=== PATIENT | male | born 1960 | race Caucasian/White ===

== ENCOUNTER 2021-04-29 23:19 | Inpatient (IN) | payer MEDICARE ==
[~2021-04-29] VITALS: Ht 175.3 cm; Wt 75.8 kg
[2021-04-30 03:48] LABS: Urine Bacteria NONE SEEN /hpf (None Seen); Urine Blood 3+ /uL (Negative); Urine Mucus FEW (None Seen); Urine WBC 292 /hpf (0 - 3)
[2021-04-30 04:10] LABS: Urine Specific Gravity 1.026 (1.001-1.035)
[2021-04-30 05:44] LABS: Basophils # (auto) 0.1 10 ^3/uL (0-0.2); Eosinophils # (auto) 0.3 10 ^3/uL (0-0.8); Eosinophils % (auto) 3.6 % (0.0-7.0); Hematocrit 47.1 % (41.0-53.0); Hemoglobin 15.4 g/dL (13.5-17.5); Lymphocytes # (auto) 1.9 10 ^3/uL (0.4-5.4); Mean Corpuscular Hemoglobin 31.5 pg (28.0-32.0); Mean Corpuscular Hgb Conc. 32.8 g/dL (32.0-36.0); Mean Corpuscular Volume 96.1 fL (80.0-100.0); Monocytes # (auto) 0.8 10 ^3/uL (0-1.3); Monocytes % (auto) 10.3 % (0.0-12.0); Neutrophils # (auto) 5.1 10 ^3/uL (1.6-8.6); Neutrophils % (auto) 62.1 % (37.0-80.0); Nucleated Red Blood Cells % 0.1 %; Red Cell Distribution Width 14.1 % (11.8-14.3); White Blood Cell 8.2 10^3/uL (4.4-10.8)
[2021-04-30 06:04] LABS: INR 1.03 (0.9-1.15)
[2021-04-30 06:15] LABS: Albumin 3.7 g/dL (3.4-5.0); Calcium 8.8 mg/dL (8.5-10.1); Magnesium 2.3 mg/dL (1.6-2.6); Potassium 3.7 mmol/L (3.5-5.1)
[2021-04-30 06:20] LABS: BUN/Creatinine Ratio 29.3; Bilirubin, Total 0.8 mg/dL (0.2-1.0); Total Protein 6.7 g/dL (6.4-8.2)
[2021-04-30] MEDS ORDERED: ONDANSETRON HCL 4 MG/2 ML VIAL IV PRN (07:00)
[2021-04-30] MEDS ORDERED: ACETAMINOPHEN 325 MG TAB PO PRN (07:00)
[2021-04-30] MEDS: HYDROcodone-ACET 5/325MG TAB PO PRN ×3 (08:23→23:46)
[2021-04-30] MEDS: cefTRIAXone 1GM/50ML D5W 50 ML IV SCH (09:46)
[2021-04-30] MEDS: PHENAZOPYRIDINE HCL 100 MG TAB PO SCH ×2 (10:21→23:46)
[2021-04-30] MEDS: PANTOPRAZOLE 40 MG TAB PO SCH (10:21)
[2021-04-30 17:00] VITALS: BP 153/78
[2021-04-30] MEDS: TAMSULOSIN HYDROCHLORIDE 0.4 MG CAP PO SCH (17:40)
[2021-04-30 22:00] VITALS: BP 133/75
[2021-05-01] MEDS: SODIUM CHLORIDE 0.9% 1,000 ML IV SCH ×3 (04:20→17:45)
[2021-05-01] MEDS: HYDROcodone-ACET 5/325MG TAB PO PRN ×4 (04:43→22:53)
[2021-05-01 05:58] LABS: Basophils # (auto) 0.1 10 ^3/uL (0-0.2); Basophils % (auto) 0.5 % (0.0-2.0); Eosinophils # (auto) 0.2 10 ^3/uL (0-0.8); Hematocrit 40.7 % (41.0-53.0); Lymphocytes # (auto) 1.8 10 ^3/uL (0.4-5.4); Lymphocytes % (auto) 17.3 % (10.0-50.0); Mean Corpuscular Hemoglobin 32.9 pg (28.0-32.0); Mean Corpuscular Hgb Conc. 34.3 g/dL (32.0-36.0); Mean Corpuscular Volume 95.8 fL (80.0-100.0); Monocytes # (auto) 1.1 10 ^3/uL (0-1.3); Neutrophils # (auto) 7.4 10 ^3/uL (1.6-8.6); Neutrophils % (auto) 70.2 % (37.0-80.0); Red Blood Cells 4.25 10^6/uL (4.5-5.90); White Blood Cell 10.5 10^3/uL (4.4-10.8)
[2021-05-01 06:33] LABS: BUN/Creatinine Ratio 23.3; Calcium 7.9 mg/dL (8.5-10.1); Potassium 3.6 mmol/L (3.5-5.1)
[2021-05-01 08:00] VITALS: BP 145/56
[2021-05-01] MEDS: cefTRIAXone 1GM/50ML D5W 50 ML IV SCH (11:15)
[2021-05-01] MEDS: PANTOPRAZOLE 40 MG TAB PO SCH (11:16)
[2021-05-01] MEDS: PHENAZOPYRIDINE HCL 100 MG TAB PO SCH ×2 (11:16→22:53)
[2021-05-01] MEDS: TAMSULOSIN HYDROCHLORIDE 0.4 MG CAP PO SCH (18:40)
[2021-05-01 22:00] VITALS: BP 141/78
[2021-05-02] MEDS: SODIUM CHLORIDE 0.9% 1,000 ML IV SCH ×4 (01:33→23:15)
[2021-05-02 05:00] VITALS: BP 144/86
[2021-05-02] MEDS: HYDROcodone-ACET 5/325MG TAB PO PRN ×2 (06:23→20:17)
[2021-05-02 09:00] VITALS: BP 152/102
[2021-05-02] MEDS: cefTRIAXone 1GM/50ML D5W 50 ML IV SCH (09:30)
[2021-05-02] MEDS: PANTOPRAZOLE 40 MG TAB PO SCH (09:31)
[2021-05-02 13:00] VITALS: BP 150/89
[2021-05-02 16:52] VITALS: BP 148/95
[2021-05-02] MEDS: TAMSULOSIN HYDROCHLORIDE 0.4 MG CAP PO SCH (18:50)
[2021-05-02 22:00] VITALS: BP 137/89
[2021-05-02] MEDS: TEMAZEPAM 15 MG CAP PO PRN (23:24)
[2021-05-03] MEDS: SODIUM CHLORIDE 0.9% 1,000 ML IV SCH ×4 (03:02→23:11)
[2021-05-03 05:16] VITALS: BP 150/91
[2021-05-03 09:00] VITALS: BP 139/77
[2021-05-03] MEDS: cefTRIAXone 1GM/50ML D5W 50 ML IV SCH (09:04)
[2021-05-03] MEDS: PANTOPRAZOLE 40 MG TAB PO SCH (09:04)
[2021-05-03] MEDS: HYDROcodone-ACET 5/325MG TAB PO PRN (13:06)
[2021-05-03] MEDS: TAMSULOSIN HYDROCHLORIDE 0.4 MG CAP PO SCH (18:49)
[2021-05-03] MEDS ORDERED: KETOROLAC TROMETH 30 MG/ML 1ML VIAL IV ONE (21:00)
[2021-05-03] MEDS: TEMAZEPAM 15 MG CAP PO PRN (21:59)
[2021-05-03 22:00] VITALS: BP 147/84
[2021-05-04 05:00] VITALS: BP 146/81
[2021-05-04 05:37] LABS: Basophils # (auto) 0.1 10 ^3/uL (0-0.2); Basophils % (auto) 0.9 % (0.0-2.0); Eosinophils # (auto) 0.6 10 ^3/uL (0-0.8); Hematocrit 38.2 % (41.0-53.0); Lymphocytes # (auto) 1.5 10 ^3/uL (0.4-5.4); Lymphocytes % (auto) 18.6 % (10.0-50.0); Mean Corpuscular Hemoglobin 32.5 pg (28.0-32.0); Mean Corpuscular Volume 95.7 fL (80.0-100.0); Monocytes # (auto) 0.8 10 ^3/uL (0-1.3); Monocytes % (auto) 10.3 % (0.0-12.0); Neutrophils % (auto) 63.2 % (37.0-80.0); Nucleated Red Blood Cells % 0.1 %; Red Blood Cells 3.99 10^6/uL (4.5-5.90); Red Cell Distribution Width 13.8 % (11.8-14.3); White Blood Cell 7.9 10^3/uL (4.4-10.8)
[2021-05-04 05:39] LABS: INR 1.01 (0.9-1.15); Partial Thromboplastin Time 25.6 sec (23.6-33.0)
[2021-05-04] MEDS: SODIUM CHLORIDE 0.9% 1,000 ML IV SCH ×3 (05:40→19:00)
[2021-05-04 05:50] LABS: Potassium 4.2 mmol/L (3.5-5.1)
[2021-05-04 05:56] LABS: Albumin 2.4 g/dL (3.4-5.0); BUN/Creatinine Ratio 15.2
[2021-05-04 06:28] LABS: Bilirubin, Total 0.6 mg/dL (0.2-1.0); Total Protein 5.2 g/dL (6.4-8.2)
[2021-05-04 08:48] VITALS: BP 139/83
[2021-05-04] MEDS: PANTOPRAZOLE 40 MG TAB PO SCH (08:48)
[2021-05-04] MEDS: cefTRIAXone 1GM/50ML D5W 50 ML IV SCH (08:48)
[2021-05-04 12:49] VITALS: BP 140/80
[2021-05-04 17:00] VITALS: BP 165/84
[2021-05-04 17:07] VITALS: BP 165/84
[2021-05-04] MEDS: TAMSULOSIN HYDROCHLORIDE 0.4 MG CAP PO SCH (18:24)
[2021-05-04] MEDS: HYDROcodone-ACET 5/325MG TAB PO PRN (20:31)
[2021-05-04] MEDS: TEMAZEPAM 15 MG CAP PO PRN (21:38)
[2021-05-04 22:00] VITALS: BP 151/78
[2021-05-05] MEDS: SODIUM CHLORIDE 0.9% 1,000 ML IV SCH ×5 (00:23→21:40)
[2021-05-05 05:00] VITALS: BP 134/79
[2021-05-05 09:00] VITALS: BP 157/90
[2021-05-05] MEDS: PANTOPRAZOLE 40 MG TAB PO SCH (09:21)
[2021-05-05] MEDS: cefTRIAXone 1GM/50ML D5W 50 ML IV SCH (09:22)
[2021-05-05 13:00] VITALS: BP 115/93
[2021-05-05] MEDS ORDERED: GLYCOPYRROLATE 0.2 MG/ML 1ML VIAL ONE (15:34)
[2021-05-05] MEDS ORDERED: ETOMIDATE (2MG/ML) 20ML VIAL IV ONE (15:34)
[2021-05-05] MEDS ORDERED: fentaNYL CITRATE 100 MCG/2 ML VL ONE (15:34)
[2021-05-05] MEDS ORDERED: MEPERIDINE HCL (50 MG/ML) 1 ML VIAL ONE (15:34)
[2021-05-05] MEDS ORDERED: LIDOCAINE 2% (LOCAL ANESTH.) PF 5ml SDV ONE (15:34)
[2021-05-05] MEDS ORDERED: DexAMETHasone SOD PHOS 10MG/1ML VIAL INJ ONE (15:34)
[2021-05-05] MEDS ORDERED: ePHEDrine SULFATE 50 MG/ML AMP ONE (15:34)
[2021-05-05] MEDS ORDERED: MIDAZOLAM HCL 2MG/2ML 2ml VIAL (1mg/ml) ONE (15:34)
[2021-05-05] MEDS ORDERED: ONDANSETRON HCL 4 MG/2 ML VIAL ONE (15:34)
[2021-05-05] MEDS ORDERED: ROCURONIUM 10MG/ML 10ML VIAL IV ONE (15:34)
[2021-05-05 16:34] VITALS: BP 127/72
[2021-05-05] MEDS: TAMSULOSIN HYDROCHLORIDE 0.4 MG CAP PO SCH (18:43)
[2021-05-05] MEDS: HYDROcodone-ACET 5/325MG TAB PO PRN (18:44)
[2021-05-05] MEDS: TEMAZEPAM 15 MG CAP PO PRN (21:10)
[2021-05-05 22:00] VITALS: BP 117/76
[2021-05-06] MEDS: SODIUM CHLORIDE 0.9% 1,000 ML IV SCH ×3 (04:54→19:29)
[2021-05-06] MEDS: HYDROcodone-ACET 5/325MG TAB PO PRN (06:02)
[2021-05-06] MEDS: cefTRIAXone 1GM/50ML D5W 50 ML IV SCH (08:58)
[2021-05-06] MEDS: PANTOPRAZOLE 40 MG TAB PO SCH (08:59)
[2021-05-06 09:00] VITALS: BP 130/52
[2021-05-06 13:00] VITALS: BP 135/74
[2021-05-06 17:00] VITALS: BP 139/91
[2021-05-06] MEDS: TAMSULOSIN HYDROCHLORIDE 0.4 MG CAP PO SCH (17:07)
[2021-05-06 22:00] VITALS: BP 141/71
[2021-05-06] MEDS: TEMAZEPAM 15 MG CAP PO PRN (22:32)
[2021-05-07] MEDS: SODIUM CHLORIDE 0.9% 1,000 ML IV SCH ×4 (02:14→20:24)
[2021-05-07 05:00] VITALS: BP 147/75
[2021-05-07] MEDS ORDERED: CIPROFLOXACIN 400MG/200ML 200 ML IV ONE (07:09)
[2021-05-07] MEDS ORDERED: fentaNYL CITRATE 100 MCG/2 ML VL ONE (07:48)
[2021-05-07] MEDS ORDERED: MEPERIDINE HCL (50 MG/ML) 1 ML VIAL ONE (07:49)
[2021-05-07] MEDS ORDERED: MIDAZOLAM HCL 2MG/2ML 2ml VIAL (1mg/ml) ONE (07:49)
[2021-05-07] MEDS ORDERED: ETOMIDATE (2MG/ML) 20ML VIAL IV ONE (08:18)
[2021-05-07] MEDS ORDERED: DexAMETHasone SOD PHOS 10MG/1ML VIAL INJ ONE (08:18)
[2021-05-07 09:00] VITALS: BP 149/88
[2021-05-07] MEDS: cefTRIAXone 1GM/50ML D5W 50 ML IV SCH (10:18)
[2021-05-07] MEDS: PANTOPRAZOLE 40 MG TAB PO SCH (10:18)
[2021-05-07] MEDS: HYDROcodone-ACET 5/325MG TAB PO PRN ×2 (10:28→19:17)
[2021-05-07 13:00] VITALS: BP 147/87
[2021-05-07 17:00] VITALS: BP 150/93
[2021-05-07] MEDS: TAMSULOSIN HYDROCHLORIDE 0.4 MG CAP PO SCH (18:16)
[2021-05-07] MEDS: TEMAZEPAM 15 MG CAP PO PRN (21:45)
[2021-05-07 22:00] VITALS: BP 169/84
[2021-05-08] MEDS: SODIUM CHLORIDE 0.9% 1,000 ML IV SCH ×2 (04:37→09:40)
[2021-05-08 05:00] VITALS: BP 152/88
[2021-05-08 09:00] VITALS: BP 149/87
[2021-05-08] MEDS: PANTOPRAZOLE 40 MG TAB PO SCH (09:30)
[2021-05-08] MEDS: HYDROcodone-ACET 5/325MG TAB PO PRN (09:30)
[2021-05-08] MEDS: cefTRIAXone 1GM/50ML D5W 50 ML IV SCH (09:30)
[2021-05-08 13:00] VITALS: BP 137/75
[2021-05-08 14:56] VITALS: BP 137/75
== END 2021-05-08 16:30 | disposition home or self-care (01) | DRG 713 ==
LOC: ER 23:19 → OVERFLOW 04-30 06:49 → WEST WING 04-30 12:55
PROVIDERS: ADMIT Nurse Practitioner; ATTEND Family Medicine
PROC: 0VB08ZZ Excision of Prostate, Via Natural or Artificial Opening Endoscopic (ICD-10-PCS; principal; 2021-05-07 07:40)
DX: N40.1 Benign prostatic hyperplasia with lower urinary tract symptoms (principal); N39.0 Urinary tract infection, site not specified; N20.0 Calculus of kidney; I10 Essential (primary) hypertension; J44.9 Chronic obstructive pulmonary disease, unspecified; F17.210 Nicotine dependence, cigarettes, uncomplicated; N39.498 Other specified urinary incontinence; R33.8 Other retention of urine; I25.10 Atherosclerotic heart disease of native coronary artery without angina pectoris; Z20.822 Contact with and (suspected) exposure to COVID-19; G40.909 Epilepsy, unspecified, not intractable, without status epilepticus; Z83.3 Family history of diabetes mellitus; Z86.73 Personal history of transient ischemic attack (TIA), and cerebral infarction without residual deficits; Z87.442 Personal history of urinary calculi; Z90.79 Acquired absence of other genital organ(s)
CPT/HCPCS: 36415; 71045; 74176; 80048; 80053; 81001; 83605; 83735; 85025; 85610; 85730; 86850; 86900; 86901; 87086; 87426; 93306; 96365; G0378; J0696; J1100; J1885; J2001; J2250; J2405

== ENCOUNTER 2021-09-14 14:07 | Emergency (ER) | payer MEDICARE ==
[~2021-09-14] VITALS: Ht 172.7 cm; Wt 72.6 kg
[2021-09-14] MEDS ORDERED: KETOROLAC TROMETH 60MG/2ML VIAL IM ONE (16:15)
[2021-09-14] MEDS ORDERED: ALBU0.084 IN (16:49)
[2021-09-14] MEDS ORDERED: IBUP800T27 PO (16:49)
[2021-09-14 17:21] VITALS: BP 150/99
== END 2021-09-14 17:40 | disposition home or self-care (01) ==
LOC: ER 14:09
DX: M54.50 Low back pain, unspecified (principal); I10 Essential (primary) hypertension; I25.10 Atherosclerotic heart disease of native coronary artery without angina pectoris; F17.210 Nicotine dependence, cigarettes, uncomplicated; Z79.1 Long term (current) use of non-steroidal anti-inflammatories (NSAID); Z79.899 Other long term (current) drug therapy; W10.9XXA Fall (on) (from) unspecified stairs and steps, initial encounter; Y93.89 Activity, other specified; Y92.89 Other specified places as the place of occurrence of the external cause; Y99.8 Other external cause status
CPT/HCPCS: 70450; 72100; 96372; 99284; J1885

== ENCOUNTER 2021-11-21 18:23 | Inpatient (IN) | payer MEDICARE ==
[~2021-11-21] VITALS: Ht 175.3 cm; Wt 60.3 kg
[~2021-11-21 18:23] MED LIST: ALBU0.084 IN; IBUP800T27 PO
[2021-11-21] MEDS ORDERED: methylPREDNISolone SOD SUCC 125 MG/2 ML VL IV ONE (19:30)
[2021-11-21] MEDS ORDERED: ALBUTEROL SULF 2.5 MG/0.5ML(0.5%) NEB SOLN NEB ONE (19:30)
[2021-11-21] MEDS ORDERED: IPRATROPIUM BROM 0.5 MG/2.5ML INH SOL NEB ONE (19:30)
[2021-11-21 19:34] LABS: Basophils # (auto) 0.1 10 ^3/uL (0-0.2); Basophils % (auto) 0.4 % (0.0-2.0); Eosinophils # (auto) 0.1 10 ^3/uL (0-0.8); Eosinophils % (auto) 0.4 % (0.0-7.0); Hematocrit 43.1 % (41.0-53.0); Hemoglobin 14.5 g/dL (13.5-17.5); Lymphocytes # (auto) 1.1 10 ^3/uL (0.4-5.4); Mean Corpuscular Hemoglobin 31.6 pg (28.0-32.0); Mean Corpuscular Hgb Conc. 33.7 g/dL (32.0-36.0); Mean Corpuscular Volume 93.6 fL (80.0-100.0); Monocytes % (auto) 7.1 % (0.0-12.0); Neutrophils # (auto) 11.8 10 ^3/uL (1.6-8.6); Neutrophils % (auto) 84.1 % (37.0-80.0); Nucleated Red Blood Cells % 0.1 %; Red Cell Distribution Width 13.4 % (11.8-14.3)
[2021-11-21 19:49] LABS: BUN/Creatinine Ratio 36.5; Calcium 8.7 mg/dL (8.5-10.1); Potassium 4.8 mmol/L (3.5-5.1)
[2021-11-21 19:53] LABS: Bilirubin, Total 0.9 mg/dL (0.2-1.0); Total Protein 6.5 g/dL (6.4-8.2)
[2021-11-21] MEDS ORDERED: IOHEXOL 300 MG/ML 100ML BOTTLE IJ ONE (20:55)
[2021-11-21] MEDS ORDERED: KETOROLAC TROMETH 30 MG/ML 1ML VIAL IV ONE (21:15)
[2021-11-21 22:30] VITALS: BP 135/86
[2021-11-21] MEDS ORDERED: AZITHROMYCIN 250 MG TAB PO ONE (23:45)
[2021-11-21] MEDS ORDERED: cefTRIAXone SOD 1,000 MG VL IV ONE (23:45)
[2021-11-22] MEDS ORDERED: DOCUSATE SOD 100 MG CAP PO PRN
[2021-11-22] MEDS ORDERED: DEXTROSE (50%) 50ML SYRG IV PRN
[2021-11-22] MEDS ORDERED: ACETAMINOPHEN 325 MG TAB PO PRN
[2021-11-22] MEDS ORDERED: NITROGLYCERIN 0.4 MG SL TAB SL PRN (01:00)
[2021-11-22] MEDS: SODIUM CHLORIDE 0.9% 1,000 ML IV SCH ×2 (01:22→17:30)
[2021-11-22] MEDS: HYDROcodone-ACET 5/325MG TAB PO PRN ×5 (03:20→21:36)
[2021-11-22] MEDS: ALBUTEROL SULF 2.5 MG/0.5ML(0.5%) NEB SOLN NEB PRN ×2 (04:48→22:57)
[2021-11-22] MEDS: IPRATROPIUM BROM 0.5 MG/2.5ML INH SOL NEB PRN ×2 (04:48→22:57)
[2021-11-22] MEDS: methylPREDNISolone SOD SUCC 40 MG/ML VL IV SCH ×3 (06:15→23:59)
[2021-11-22] MEDS: ACCU-CHEK COMFORT CURVE STRIP VI SCH ×3 (06:16→20:00)
[2021-11-22] MEDS: InsuLIN REG 1unit/0.01ml Soln (100units/ml) SC SCH ×3 (06:16→17:00)
[2021-11-22 06:45] LABS: Basophils # (auto) 0 10 ^3/uL (0-0.2); Eosinophils # (auto) 0 10 ^3/uL (0-0.8); Hematocrit 38.2 % (41.0-53.0); Lymphocytes # (auto) 0.9 10 ^3/uL (0.4-5.4); Mean Corpuscular Hemoglobin 31.9 pg (28.0-32.0); Mean Corpuscular Volume 93.8 fL (80.0-100.0); Monocytes # (auto) 1.1 10 ^3/uL (0-1.3); Monocytes % (auto) 6.6 % (0.0-12.0); Neutrophils # (auto) 15.2 10 ^3/uL (1.6-8.6); Neutrophils % (auto) 88.4 % (37.0-80.0); Nucleated Red Blood Cells % 0.1 %; Red Blood Cells 4.07 10^6/uL (4.5-5.90); Red Cell Distribution Width 13.5 % (11.8-14.3); White Blood Cell 17.2 10^3/uL (4.4-10.8)
[2021-11-22 07:02] LABS: Calcium 8.6 mg/dL (8.5-10.1)
[2021-11-22 07:08] LABS: Albumin 2.7 g/dL (3.4-5.0); Bilirubin, Total 0.5 mg/dL (0.2-1.0); Total Protein 5.6 g/dL (6.4-8.2)
[2021-11-22] MEDS: FAMOTIDINE (10MG/ML) 2ML VL IV SCH (10:00)
[2021-11-22] MEDS: MULTIPLE VITAMIN TAB PO SCH (10:01)
[2021-11-22] MEDS: ZINC SULFATE 220mg CAP or TAB PO SCH (10:01)
[2021-11-22] MEDS: ASCORBIC ACID 500 MG TAB PO SCH ×2 (10:01→23:59)
[2021-11-22] MEDS: HEPARIN SODIUM (PORCINE) 5000 UNITS/ML 1ML VIAL SC SCH (10:02)
[2021-11-22 17:35] LABS: Urine Bacteria NONE SEEN /hpf (None Seen); Urine Blood Negative /uL (Negative); Urine Specific Gravity 1.029 (1.001-1.035); Urine WBC 3 /hpf (0 - 3)
[2021-11-22 18:56] VITALS: BP 152/87
[2021-11-22] MEDS: cefTRIAXone 1GM/50ML D5W 50 ML IV SCH (20:53)
[2021-11-22 22:00] VITALS: BP 138/75
[2021-11-22] MEDS: AZITHROMYCIN 500MG/ 250ML 250 ML IV SCH (23:59)
[2021-11-23] MEDS: HEPARIN SODIUM (PORCINE) 5000 UNITS/ML 1ML VIAL SC SCH ×3 (00:17→22:00)
[2021-11-23] MEDS: HYDROcodone-ACET 5/325MG TAB PO PRN ×2 (02:00→10:22)
[2021-11-23 04:50] VITALS: BP 137/77
[2021-11-23] MEDS: methylPREDNISolone SOD SUCC 40 MG/ML VL IV SCH ×3 (06:36→22:39)
[2021-11-23] MEDS: ACCU-CHEK COMFORT CURVE STRIP VI SCH ×5 (06:50→23:03)
[2021-11-23] MEDS: InsuLIN REG 1unit/0.01ml Soln (100units/ml) SC SCH ×5 (06:51→22:00)
[2021-11-23] MEDS: SODIUM CHLORIDE 0.9% 1,000 ML IV SCH (09:20)
[2021-11-23] MEDS: FAMOTIDINE (10MG/ML) 2ML VL IV SCH (10:21)
[2021-11-23] MEDS: ZINC SULFATE 220mg CAP or TAB PO SCH (10:21)
[2021-11-23] MEDS: MULTIPLE VITAMIN TAB PO SCH (10:22)
[2021-11-23] MEDS: ASCORBIC ACID 500 MG TAB PO SCH ×2 (10:22→22:39)
[2021-11-23] MEDS ORDERED: OMNIPAQUE ORAL SOLN 500ml 12mg/ml PO ONE (10:54)
[2021-11-23 11:14] LABS: INR 1.07 (0.9-1.15); Partial Thromboplastin Time 20.5 sec (23.6-33.0)
[2021-11-23] MEDS ORDERED: GADOTERATE MEG 7.5 MMOL/15ml INJ (0.5MMOL/ml) IV ONE (13:25)
[2021-11-23 22:00] VITALS: BP 134/76
[2021-11-23] MEDS: cefTRIAXone 1GM/50ML D5W 50 ML IV SCH (22:39)
[2021-11-23] MEDS: ONDANSETRON HCL 4 MG/2 ML VIAL IV PRN (22:57)
[2021-11-23] MEDS: MORPHINE SULFATE INJECTION 2 MG/ML SYRG IV PRN (23:03)
[2021-11-23] MEDS: MORPHINE SULFATE 4 MG/ML SYR/VIAL IV PRN (23:03)
[2021-11-23] MEDS: AZITHROMYCIN 500MG/ 250ML 250 ML IV SCH (23:29)
[2021-11-24] MEDS: HYDROcodone-ACET 5/325MG TAB PO PRN ×4 (01:35→23:58)
[2021-11-24] MEDS: SODIUM CHLORIDE 0.9% 1,000 ML IV SCH ×2 (02:03→12:28)
[2021-11-24 05:00] VITALS: BP 131/94
[2021-11-24] MEDS: MORPHINE SULFATE 4 MG/ML SYR/VIAL IV PRN ×2 (05:38→20:28)
[2021-11-24] MEDS: ONDANSETRON HCL 4 MG/2 ML VIAL IV PRN (05:43)
[2021-11-24] MEDS: methylPREDNISolone SOD SUCC 40 MG/ML VL IV SCH ×3 (05:51→22:45)
[2021-11-24] MEDS: ACCU-CHEK COMFORT CURVE STRIP VI SCH ×4 (06:01→22:45)
[2021-11-24] MEDS: InsuLIN REG 1unit/0.01ml Soln (100units/ml) SC SCH ×4 (06:01→22:00)
[2021-11-24 08:30] VITALS: BP 135/96
[2021-11-24 09:00] VITALS: BP 135/96
[2021-11-24] MEDS: MULTIPLE VITAMIN TAB PO SCH (09:47)
[2021-11-24] MEDS: ZINC SULFATE 220mg CAP or TAB PO SCH (09:47)
[2021-11-24] MEDS: ASCORBIC ACID 500 MG TAB PO SCH ×2 (09:47→22:45)
[2021-11-24] MEDS: FAMOTIDINE (10MG/ML) 2ML VL IV SCH (09:48)
[2021-11-24] MEDS: HEPARIN SODIUM (PORCINE) 5000 UNITS/ML 1ML VIAL SC SCH ×2 (09:52→22:47)
[2021-11-24] MEDS: IPRATROPIUM BROM 0.5 MG/2.5ML INH SOL NEB PRN (10:34)
[2021-11-24] MEDS: ALBUTEROL SULF 2.5 MG/0.5ML(0.5%) NEB SOLN NEB PRN (10:34)
[2021-11-24 13:02] VITALS: BP 135/83
[2021-11-24] MEDS ORDERED: BARIUM SULFATE 98% 340 GM PWDR ONE (14:56)
[2021-11-24] MEDS ORDERED: EZ PAQUE SUSP 12OZ BTL ONE (14:56)
[2021-11-24] MEDS ORDERED: EZ-GAS II GRANULES (RADIOLOGY USE) PO ONE (14:57)
[2021-11-24 17:03] VITALS: BP 126/65
[2021-11-24] MEDS: cefTRIAXone 1GM/50ML D5W 50 ML IV SCH (20:28)
[2021-11-24 20:37] VITALS: BP 144/79
[2021-11-24] MEDS: AZITHROMYCIN 500MG/ 250ML 250 ML IV SCH (22:46)
[2021-11-25] MEDS: HYDROcodone-ACET 5/325MG TAB PO PRN ×2 (04:05→10:18)
[2021-11-25 05:00] VITALS: BP 106/67
[2021-11-25] MEDS: InsuLIN REG 1unit/0.01ml Soln (100units/ml) SC SCH ×4 (06:29→22:58)
[2021-11-25] MEDS: ACCU-CHEK COMFORT CURVE STRIP VI SCH ×3 (06:29→17:27)
[2021-11-25] MEDS: methylPREDNISolone SOD SUCC 40 MG/ML VL IV SCH ×3 (06:29→22:18)
[2021-11-25 08:20] VITALS: BP 148/82
[2021-11-25 09:07] VITALS: BP 148/82
[2021-11-25] MEDS: HEPARIN SODIUM (PORCINE) 5000 UNITS/ML 1ML VIAL SC SCH ×2 (10:00→22:17)
[2021-11-25] MEDS: FAMOTIDINE (10MG/ML) 2ML VL IV SCH (10:17)
[2021-11-25] MEDS: ZINC SULFATE 220mg CAP or TAB PO SCH (10:17)
[2021-11-25] MEDS: ASCORBIC ACID 500 MG TAB PO SCH ×2 (10:17→22:03)
[2021-11-25] MEDS: MULTIPLE VITAMIN TAB PO SCH (10:17)
[2021-11-25] MEDS: SODIUM CHLORIDE 0.9% 1,000 ML IV SCH (11:28)
[2021-11-25 13:00] VITALS: BP 137/82
[2021-11-25] MEDS ORDERED: LORazepam 2MG/ML-1ML VIAL IV ONE (14:45)
[2021-11-25 17:09] VITALS: BP 141/88
[2021-11-25] MEDS: MORPHINE SULFATE 4 MG/ML SYR/VIAL IV PRN (21:07)
[2021-11-25] MEDS: cefTRIAXone 1GM/50ML D5W 50 ML IV SCH (21:26)
[2021-11-25 22:00] VITALS: BP 140/81
[2021-11-25] MEDS: AZITHROMYCIN 500MG/ 250ML 250 ML IV SCH (22:23)
[2021-11-26] MEDS: IPRATROPIUM BROM 0.5 MG/2.5ML INH SOL NEB PRN ×2 (00:17→14:01)
[2021-11-26] MEDS: ALBUTEROL SULF 2.5 MG/0.5ML(0.5%) NEB SOLN NEB PRN ×2 (00:17→14:01)
[2021-11-26] MEDS: HYDROcodone-ACET 5/325MG TAB PO PRN ×4 (01:10→20:13)
[2021-11-26 05:00] VITALS: BP 131/83
[2021-11-26] MEDS ORDERED: OMNIPAQUE ORAL SOLN 500ml 12mg/ml PO ONE (06:26)
[2021-11-26 08:30] VITALS: BP 149/71
[2021-11-26 09:00] VITALS: BP 158/86
[2021-11-26] MEDS: FAMOTIDINE (10MG/ML) 2ML VL IV SCH (09:42)
[2021-11-26] MEDS: ZINC SULFATE 220mg CAP or TAB PO SCH (09:42)
[2021-11-26] MEDS: MULTIPLE VITAMIN TAB PO SCH (09:42)
[2021-11-26] MEDS: ASCORBIC ACID 500 MG TAB PO SCH ×2 (09:42→22:14)
[2021-11-26] MEDS: HEPARIN SODIUM (PORCINE) 5000 UNITS/ML 1ML VIAL SC SCH ×2 (09:47→22:19)
[2021-11-26] MEDS: InsuLIN REG 1unit/0.01ml Soln (100units/ml) SC SCH ×3 (12:15→22:20)
[2021-11-26] MEDS: ACCU-CHEK COMFORT CURVE STRIP VI SCH ×3 (12:16→22:14)
[2021-11-26] MEDS: SODIUM CHLORIDE 0.9% 1,000 ML IV SCH ×2 (12:22→20:40)
[2021-11-26 13:00] VITALS: BP 149/71
[2021-11-26] MEDS: methylPREDNISolone SOD SUCC 40 MG/ML VL IV SCH ×2 (14:59→22:14)
[2021-11-26] MEDS: cefTRIAXone 1GM/50ML D5W 50 ML IV SCH (21:11)
[2021-11-26] MEDS ORDERED: TEMAZEPAM 15 MG CAP PO ONE (21:45)
[2021-11-26 22:00] VITALS: BP 120/75
[2021-11-26] MEDS: AZITHROMYCIN 500MG/ 250ML 250 ML IV SCH (22:14)
[2021-11-27] MEDS: HYDROcodone-ACET 5/325MG TAB PO PRN (02:35)
[2021-11-27 05:00] VITALS: BP 146/79
[2021-11-27] MEDS: MORPHINE SULFATE 4 MG/ML SYR/VIAL IV PRN ×2 (05:08→10:18)
[2021-11-27 06:17] LABS: Basophils # (auto) 0 10 ^3/uL (0-0.2); Eosinophils # (auto) 0 10 ^3/uL (0-0.8); Red Cell Distribution Width 13.2 % (11.8-14.3)
[2021-11-27 06:20] LABS: Basophils % (auto) 0.3 % (0.0-2.0); Hematocrit 34.1 % (41.0-53.0); Hemoglobin 11.6 g/dL (13.5-17.5); Lymphocytes # (auto) 1.1 10 ^3/uL (0.4-5.4); Lymphocytes % (auto) 7.4 % (10.0-50.0); Mean Corpuscular Hemoglobin 31.7 pg (28.0-32.0); Mean Corpuscular Hgb Conc. 34.2 g/dL (32.0-36.0); Mean Corpuscular Volume 92.6 fL (80.0-100.0); Monocytes # (auto) 1.1 10 ^3/uL (0-1.3); Monocytes % (auto) 7.6 % (0.0-12.0); Neutrophils # (auto) 12.2 10 ^3/uL (1.6-8.6); Neutrophils % (auto) 84.7 % (37.0-80.0); Nucleated Red Blood Cells % 0.1 %; Red Blood Cells 3.68 10^6/uL (4.5-5.90); White Blood Cell 14.4 10^3/uL (4.4-10.8)
[2021-11-27 06:37] LABS: Albumin 2.6 g/dL (3.4-5.0); Calcium 8.5 mg/dL (8.5-10.1); Potassium 4.4 mmol/L (3.5-5.1)
[2021-11-27 06:42] LABS: Bilirubin, Total 0.3 mg/dL (0.2-1.0); Total Protein 5.1 g/dL (6.4-8.2)
[2021-11-27] MEDS: InsuLIN REG 1unit/0.01ml Soln (100units/ml) SC SCH ×4 (06:43→22:25)
[2021-11-27] MEDS: methylPREDNISolone SOD SUCC 40 MG/ML VL IV SCH ×3 (06:43→20:55)
[2021-11-27] MEDS: ACCU-CHEK COMFORT CURVE STRIP VI SCH ×4 (06:43→22:15)
[2021-11-27 09:00] VITALS: BP 152/89
[2021-11-27] MEDS: FAMOTIDINE (10MG/ML) 2ML VL IV SCH (10:16)
[2021-11-27] MEDS: MULTIPLE VITAMIN TAB PO SCH (10:17)
[2021-11-27] MEDS: ASCORBIC ACID 500 MG TAB PO SCH ×2 (10:17→22:06)
[2021-11-27] MEDS: ZINC SULFATE 220mg CAP or TAB PO SCH (10:17)
[2021-11-27] MEDS: HEPARIN SODIUM (PORCINE) 5000 UNITS/ML 1ML VIAL SC SCH ×2 (10:18→22:00)
[2021-11-27 12:49] VITALS: BP 152/86
[2021-11-27] MEDS: SODIUM CHLORIDE 0.9% 1,000 ML IV SCH (13:20)
[2021-11-27 16:40] VITALS: BP 140/81
[2021-11-27] MEDS: MORPHINE SULFATE INJECTION 2 MG/ML SYRG IV PRN (20:48)
[2021-11-27] MEDS: cefTRIAXone 1GM/50ML D5W 50 ML IV SCH (20:52)
[2021-11-27 22:00] VITALS: BP 141/85
[2021-11-27] MEDS: AZITHROMYCIN 500MG/ 250ML 250 ML IV SCH (22:07)
[2021-11-27] MEDS: ALBUTEROL SULF 2.5 MG/0.5ML(0.5%) NEB SOLN NEB PRN (22:39)
[2021-11-27] MEDS: IPRATROPIUM BROM 0.5 MG/2.5ML INH SOL NEB PRN (22:39)
[2021-11-27] MEDS: ZOLPIDEM TARTRATE 5 MG TAB PO PRN (23:53)
[2021-11-28 00:17] VITALS: BP 141/85
[2021-11-28] MEDS: MORPHINE SULFATE 4 MG/ML SYR/VIAL IV PRN ×4 (03:12→22:10)
[2021-11-28 04:00] VITALS: BP 139/84
[2021-11-28] MEDS: HYDROcodone-ACET 5/325MG TAB PO PRN ×2 (04:56→19:31)
[2021-11-28] MEDS: methylPREDNISolone SOD SUCC 40 MG/ML VL IV SCH ×3 (06:00→21:59)
[2021-11-28] MEDS: SODIUM CHLORIDE 0.9% 1,000 ML IV SCH ×2 (06:27→22:20)
[2021-11-28 06:28] LABS: Basophils # (auto) 0 10 ^3/uL (0-0.2); Eosinophils # (auto) 0 10 ^3/uL (0-0.8); Hemoglobin 11.8 g/dL (13.5-17.5); Lymphocytes # (auto) 1.2 10 ^3/uL (0.4-5.4); Monocytes # (auto) 1.8 10 ^3/uL (0-1.3); Red Blood Cells 3.75 10^6/uL (4.5-5.90); White Blood Cell 18.6 10^3/uL (4.4-10.8)
[2021-11-28] MEDS: InsuLIN REG 1unit/0.01ml Soln (100units/ml) SC SCH ×4 (06:28→22:18)
[2021-11-28] MEDS: ACCU-CHEK COMFORT CURVE STRIP VI SCH ×4 (06:28→22:17)
[2021-11-28 06:29] LABS: Basophils % (auto) 0.1 % (0.0-2.0); Hematocrit 34.3 % (41.0-53.0); Lymphocytes % (auto) 6.6 % (10.0-50.0); Mean Corpuscular Hemoglobin 31.3 pg (28.0-32.0); Mean Corpuscular Hgb Conc. 34.2 g/dL (32.0-36.0); Mean Corpuscular Volume 91.5 fL (80.0-100.0); Monocytes % (auto) 9.5 % (0.0-12.0); Neutrophils # (auto) 15.6 10 ^3/uL (1.6-8.6); Neutrophils % (auto) 83.8 % (37.0-80.0); Red Cell Distribution Width 13.2 % (11.8-14.3)
[2021-11-28 06:41] LABS: BUN/Creatinine Ratio 27.1; Calcium 8.9 mg/dL (8.5-10.1); Potassium 4.4 mmol/L (3.5-5.1)
[2021-11-28 09:00] VITALS: BP 128/71
[2021-11-28] MEDS: HEPARIN SODIUM (PORCINE) 5000 UNITS/ML 1ML VIAL SC SCH ×2 (10:08→22:11)
[2021-11-28] MEDS: MULTIPLE VITAMIN TAB PO SCH (10:11)
[2021-11-28] MEDS: FAMOTIDINE (10MG/ML) 2ML VL IV SCH (10:11)
[2021-11-28] MEDS: ASCORBIC ACID 500 MG TAB PO SCH ×2 (10:11→22:00)
[2021-11-28] MEDS: ZINC SULFATE 220mg CAP or TAB PO SCH (10:11)
[2021-11-28 17:00] VITALS: BP 143/84
[2021-11-28 22:00] VITALS: BP 136/79
[2021-11-28] MEDS: cefTRIAXone 1GM/50ML D5W 50 ML IV SCH (22:02)
[2021-11-28] MEDS: ONDANSETRON HCL 4 MG/2 ML VIAL IV PRN (22:45)
[2021-11-28] MEDS: AZITHROMYCIN 500MG/ 250ML 250 ML IV SCH (22:52)
[2021-11-29 05:00] VITALS: BP 146/88
[2021-11-29 05:24] LABS: Basophils # (auto) 0.1 10 ^3/uL (0-0.2); Basophils % (auto) 0.3 % (0.0-2.0); Eosinophils # (auto) 0 10 ^3/uL (0-0.8); Hematocrit 36.5 % (41.0-53.0); Hemoglobin 12.8 g/dL (13.5-17.5); Lymphocytes # (auto) 1.2 10 ^3/uL (0.4-5.4); Lymphocytes % (auto) 4.9 % (10.0-50.0); Mean Corpuscular Hemoglobin 32.3 pg (28.0-32.0); Mean Corpuscular Volume 92.3 fL (80.0-100.0); Monocytes # (auto) 1.6 10 ^3/uL (0-1.3); Monocytes % (auto) 6.6 % (0.0-12.0); Neutrophils # (auto) 21.9 10 ^3/uL (1.6-8.6); Neutrophils % (auto) 88.2 % (37.0-80.0); Red Blood Cells 3.96 10^6/uL (4.5-5.90); Red Cell Distribution Width 13.3 % (11.8-14.3); White Blood Cell 24.8 10^3/uL (4.4-10.8)
[2021-11-29 05:35] LABS: Potassium 4.4 mmol/L (3.5-5.1)
[2021-11-29 05:43] LABS: BUN/Creatinine Ratio 26.7; Calcium 8.6 mg/dL (8.5-10.1)
[2021-11-29] MEDS: methylPREDNISolone SOD SUCC 40 MG/ML VL IV SCH ×3 (06:00→21:32)
[2021-11-29] MEDS: ACCU-CHEK COMFORT CURVE STRIP VI SCH ×4 (06:50→21:24)
[2021-11-29] MEDS: InsuLIN REG 1unit/0.01ml Soln (100units/ml) SC SCH ×4 (06:51→21:24)
[2021-11-29] MEDS: MORPHINE SULFATE 4 MG/ML SYR/VIAL IV PRN ×2 (07:00→20:00)
[2021-11-29 09:00] VITALS: BP 146/88
[2021-11-29] MEDS: MULTIPLE VITAMIN TAB PO SCH (10:24)
[2021-11-29] MEDS: ASCORBIC ACID 500 MG TAB PO SCH ×2 (10:24→21:25)
[2021-11-29] MEDS: ZINC SULFATE 220mg CAP or TAB PO SCH (10:24)
[2021-11-29] MEDS: FAMOTIDINE (10MG/ML) 2ML VL IV SCH (10:24)
[2021-11-29] MEDS: HEPARIN SODIUM (PORCINE) 5000 UNITS/ML 1ML VIAL SC SCH ×2 (10:25→21:48)
[2021-11-29] MEDS: HYDROcodone-ACET 5/325MG TAB PO PRN ×2 (11:42→15:40)
[2021-11-29 12:41] VITALS: BP 125/82
[2021-11-29] MEDS: SODIUM CHLORIDE 0.9% 1,000 ML IV SCH (15:20)
[2021-11-29 16:31] VITALS: BP 132/82
[2021-11-29] MEDS: ONDANSETRON HCL 4 MG/2 ML VIAL IV PRN (20:15)
[2021-11-29] MEDS: cefTRIAXone 1GM/50ML D5W 50 ML IV SCH (21:26)
[2021-11-29] MEDS: ZOLPIDEM TARTRATE 5 MG TAB PO PRN (22:01)
[2021-11-29 22:05] VITALS: BP 147/83
[2021-11-29] MEDS: AZITHROMYCIN 500MG/ 250ML 250 ML IV SCH (22:45)
[2021-11-30] VITALS (7 sets, daily range): BP systolic 135–150; BP diastolic 63–89
[2021-11-30] MEDS: HYDROcodone-ACET 5/325MG TAB PO PRN (01:27)
[2021-11-30 05:07] LABS: Eosinophils # (auto) 0 10 ^3/uL (0-0.8)
[2021-11-30 05:21] LABS: Basophils # (auto) 0.1 10 ^3/uL (0-0.2); Basophils % (auto) 0.3 % (0.0-2.0); Hematocrit 36.3 % (41.0-53.0); Hemoglobin 12.4 g/dL (13.5-17.5); Lymphocytes # (auto) 0.9 10 ^3/uL (0.4-5.4); Lymphocytes % (auto) 3.8 % (10.0-50.0); Mean Corpuscular Hemoglobin 31.4 pg (28.0-32.0); Mean Corpuscular Hgb Conc. 34.2 g/dL (32.0-36.0); Mean Corpuscular Volume 91.9 fL (80.0-100.0); Monocytes # (auto) 1.8 10 ^3/uL (0-1.3); Monocytes % (auto) 7.2 % (0.0-12.0); Neutrophils # (auto) 21.6 10 ^3/uL (1.6-8.6); Neutrophils % (auto) 88.7 % (37.0-80.0); Red Blood Cells 3.95 10^6/uL (4.5-5.90); Red Cell Distribution Width 13.6 % (11.8-14.3); White Blood Cell 24.3 10^3/uL (4.4-10.8)
[2021-11-30 05:32] LABS: Potassium 4.6 mmol/L (3.5-5.1)
[2021-11-30 05:37] LABS: BUN/Creatinine Ratio 28.3; Calcium 8.6 mg/dL (8.5-10.1)
[2021-11-30] MEDS: InsuLIN REG 1unit/0.01ml Soln (100units/ml) SC SCH ×3 (06:14→18:07)
[2021-11-30] MEDS: methylPREDNISolone SOD SUCC 40 MG/ML VL IV SCH ×2 (06:14→14:14)
[2021-11-30] MEDS: ACCU-CHEK COMFORT CURVE STRIP VI SCH ×3 (06:14→18:05)
[2021-11-30] MEDS: MORPHINE SULFATE 4 MG/ML SYR/VIAL IV PRN ×4 (06:38→19:57)
[2021-11-30] MEDS: IPRATROPIUM BROM 0.5 MG/2.5ML INH SOL NEB PRN (08:50)
[2021-11-30] MEDS: ALBUTEROL SULF 2.5 MG/0.5ML(0.5%) NEB SOLN NEB PRN (08:50)
[2021-11-30] MEDS: ZINC SULFATE 220mg CAP or TAB PO SCH (09:59)
[2021-11-30] MEDS: MULTIPLE VITAMIN TAB PO SCH (09:59)
[2021-11-30] MEDS: HEPARIN SODIUM (PORCINE) 5000 UNITS/ML 1ML VIAL SC SCH (10:00)
[2021-11-30] MEDS: FAMOTIDINE (10MG/ML) 2ML VL IV SCH (10:00)
[2021-11-30] MEDS: ASCORBIC ACID 500 MG TAB PO SCH (10:01)
[2021-11-30] MEDS: SODIUM CHLORIDE 0.9% 1,000 ML IV SCH (14:15)
== END 2021-11-30 21:20 | DRG 871 ==
LOC: ER 18:24 → TELE 11-22 00:53 → TELE-EAST 11-22 17:00 → EAST 11-23 00:10
PROVIDERS: ADMIT Nurse Practitioner Family; ATTEND Family Medicine
PROC: 0W9B3ZZ Drainage of Left Pleural Cavity, Percutaneous Approach (ICD-10-PCS; principal; 2021-11-25)
DX: A41.9 Sepsis, unspecified organism (principal); J18.9 Pneumonia, unspecified organism; J96.01 Acute respiratory failure with hypoxia; J90 Pleural effusion, not elsewhere classified; J44.1 Chronic obstructive pulmonary disease with (acute) exacerbation; J44.0 Chronic obstructive pulmonary disease with (acute) lower respiratory infection; C34.12 Malignant neoplasm of upper lobe, left bronchus or lung; K44.9 Diaphragmatic hernia without obstruction or gangrene; I65.21 Occlusion and stenosis of right carotid artery; E78.5 Hyperlipidemia, unspecified; R59.0 Localized enlarged lymph nodes; Z20.822 Contact with and (suspected) exposure to COVID-19; F17.210 Nicotine dependence, cigarettes, uncomplicated; I10 Essential (primary) hypertension; I25.10 Atherosclerotic heart disease of native coronary artery without angina pectoris; Z83.3 Family history of diabetes mellitus; Z87.442 Personal history of urinary calculi; Z71.6 Tobacco abuse counseling; N40.0 Benign prostatic hyperplasia without lower urinary tract symptoms; Z90.79 Acquired absence of other genital organ(s)
CPT/HCPCS: 36415; 36600; 70553; 71045; 71260; 74021; 74176; 74177; 74246; 76604; 76942; 80048; 80053; 81001; 82805; 82962; 83615; 83986; 84484; 85025; 85379; 85610; 85730; 86301; 87205; 89051; 93005; 94640; 96374; 96375; G0378; J0696; J1815; J1885; J2405; J3490; J7060

== ENCOUNTER 2021-12-01 08:58 | Inpatient (IN) | payer MEDICARE ==
[~2021-12-01] VITALS: Ht 175.3 cm; Wt 72.7 kg
[2021-12-01] MEDS ORDERED: AZITHROMYCIN 500MG/ 250ML 250 ML IV ONE (12:00)
[2021-12-01] MEDS ORDERED: cefTRIAXone 1GM/50ML D5W 50 ML IV ONE (12:00)
[2021-12-01] MEDS ORDERED: NITROGLYCERIN 0.4 MG SL TAB SL PRN (14:45)
[2021-12-01] MEDS ORDERED: LACTULOSE 20Gm/30ML SOLN PO PRN (14:45)
[2021-12-01] MEDS ORDERED: hydrALAZINE HCL 20 MG/ML VL IV PRN (14:45)
[2021-12-01] MEDS ORDERED: VANCOMYCIN PER PHARMACY 0 MG IV SCH (14:45)
[2021-12-01] MEDS ORDERED: HYDROcodone-ACET 5/325MG TAB PO PRN (14:45)
[2021-12-01] MEDS ORDERED: IPRATROPIUM BROM 0.5 MG/2.5ML INH SOL NEB ONE (14:45)
[2021-12-01] MEDS ORDERED: LORazepam 0.5 MG TAB PO PRN (14:45)
[2021-12-01] MEDS ORDERED: MORPHINE SULFATE INJECTION 2 MG/ML SYRG IV PRN (14:45)
[2021-12-01] MEDS ORDERED: HYDROcodone-ACET 5/325MG TAB PO ONE (14:45)
[2021-12-01] MEDS ORDERED: DOCUSATE SOD 100 MG CAP PO PRN (14:45)
[2021-12-01] MEDS ORDERED: IOHEXOL 350 MG/ML 100ML IJ ONE (15:02)
[2021-12-01] MEDS ORDERED: VANCOMYCIN 1GM/250ML 250 ML IV ONE (15:15)
[2021-12-01] MEDS: ENOXAPARIN SOD 40 MG/0.4 ML SYRINGE SC SCH (15:52)
[2021-12-01 16:32] LABS: Basophils # (auto) 0 10 ^3/uL (0-0.2); Basophils % (auto) 0.1 % (0.0-2.0); Eosinophils # (auto) 0 10 ^3/uL (0-0.8); Neutrophils % (auto) 85.9 % (37.0-80.0)
[2021-12-01 16:35] LABS: Eosinophils % (auto) 0.1 % (0.0-7.0); Hematocrit 40.2 % (41.0-53.0); Hemoglobin 13.6 g/dL (13.5-17.5); Lymphocytes # (auto) 1.1 10 ^3/uL (0.4-5.4); Lymphocytes % (auto) 4.6 % (10.0-50.0); Mean Corpuscular Hemoglobin 31.3 pg (28.0-32.0); Mean Corpuscular Hgb Conc. 33.9 g/dL (32.0-36.0); Mean Corpuscular Volume 92.2 fL (80.0-100.0); Monocytes # (auto) 2.3 10 ^3/uL (0-1.3); Monocytes % (auto) 9.3 % (0.0-12.0); Neutrophils # (auto) 20.9 10 ^3/uL (1.6-8.6); Red Blood Cells 4.36 10^6/uL (4.5-5.90); Red Cell Distribution Width 13.4 % (11.8-14.3); White Blood Cell 24.4 10^3/uL (4.4-10.8)
[2021-12-01 16:40] LABS: BUN/Creatinine Ratio 37.5; Calcium 8.4 mg/dL (8.5-10.1)
[2021-12-01 16:43] LABS: Bilirubin, Total 0.5 mg/dL (0.2-1.0); Total Protein 6.3 g/dL (6.4-8.2)
[2021-12-01 16:47] LABS: Magnesium 2.5 mg/dL (1.6-2.6); Phosphorus 3.2 mg/dL (2.5-4.90)
[2021-12-01 17:24] LABS: INR 1.02 (0.9-1.15); Partial Thromboplastin Time 22.7 sec (23.6-33.0)
[2021-12-01 17:56] VITALS: BP 139/90
[2021-12-01] MEDS ORDERED: IPRATROPIUM BROM 0.5 MG/2.5ML INH SOL NEB SCH (18:00)
[2021-12-01] MEDS ORDERED: IPRATROPIUM BROM 0.5 MG/2.5ML INH SOL NEB PRN (18:00)
[2021-12-01] MEDS: PIPERACILLIN-TAZOB 3.375GM 100 ML IV SCH (18:41)
[2021-12-01] MEDS: MORPHINE SULFATE INJECTION 2 MG/ML SYRG IV PRN (18:48)
[2021-12-01 21:43] VITALS: BP 134/78
[2021-12-01] MEDS: ATORVASTATIN 20 MG TAB PO SCH (21:51)
[2021-12-01 22:00] VITALS: BP 119/81
[2021-12-01] MEDS ORDERED: ACETYLCYSTEINE 10 %(100MG/ML) SOL 4ML NEB SCH (22:00)
[2021-12-01] MEDS: ONDANSETRON HCL 4 MG/2 ML VIAL IV PRN (22:01)
[2021-12-01] MEDS: VANCOMYCIN 1GM/250ML 250 ML IV SCH (23:32)
[2021-12-02] MEDS: PIPERACILLIN-TAZOB 3.375GM 100 ML IV SCH ×5 (00:21→23:50)
[2021-12-02] MEDS: MORPHINE SULFATE INJECTION 2 MG/ML SYRG IV PRN ×3 (01:32→23:48)
[2021-12-02] MEDS: ONDANSETRON HCL 4 MG/2 ML VIAL IV PRN ×4 (02:02→23:48)
[2021-12-02 05:00] VITALS: BP 145/88
[2021-12-02] MEDS ORDERED: PROMETHAZINE HCL 25 MG/ML 1ML IV ONE (05:15)
[2021-12-02 05:31] LABS: Red Blood Cells 4.25 10^6/uL (4.5-5.90)
[2021-12-02 05:33] LABS: Hematocrit 39.4 % (41.0-53.0); Hemoglobin 13.6 g/dL (13.5-17.5); Mean Corpuscular Hemoglobin 31.9 pg (28.0-32.0); Mean Corpuscular Hgb Conc. 34.5 g/dL (32.0-36.0); Mean Corpuscular Volume 92.6 fL (80.0-100.0); Red Cell Distribution Width 13.6 % (11.8-14.3)
[2021-12-02 05:45] LABS: Calcium 8.5 mg/dL (8.5-10.1); Magnesium 2.4 mg/dL (1.6-2.6); Potassium 3.8 mmol/L (3.5-5.1)
[2021-12-02 05:56] LABS: Albumin 2.6 g/dL (3.4-5.0); BUN/Creatinine Ratio 40.4; Bilirubin, Total 0.6 mg/dL (0.2-1.0); CRP High Sensitivity 2.88 mg/dL (< 0.3); Phosphorus 4.4 mg/dL (2.5-4.90); Total Protein 5.8 g/dL (6.4-8.2)
[2021-12-02 06:05] LABS: White Blood Cell 38.4 10^3/uL (4.4-10.8)
[2021-12-02 06:06] LABS: Basophils % (manual) 0 (0.0-2.0); Blast Cells 0; Eosinophils % (manual) 0 (0-7); Metamyelocytes % 0; Myelocytes % 0; Promyelocytes % 0; Reactive Lymphocytes 0
[2021-12-02] MEDS ORDERED: DEXTROSE (50%) 50ML SYRG IV PRN (06:15)
[2021-12-02 06:31] LABS: Thyroid Stimulating Hormone 4.03 uIU/mL (0.358-3.74)
[2021-12-02 07:05] LABS: Band Neutrophils % (manual) 6; Lymphocytes % (manual) 5 (10.0-50.0); Monocytes % (manual) 5 (0-12)
[2021-12-02 09:00] VITALS: BP 110/70
[2021-12-02] MEDS: VANCOMYCIN 1GM/250ML 250 ML IV SCH ×2 (09:09→18:25)
[2021-12-02] MEDS: InsuLIN REG 1unit/0.01ml Soln (100units/ml) SC SCH ×4 (09:11→21:10)
[2021-12-02] MEDS: ACCU-CHEK COMFORT CURVE STRIP VI SCH ×4 (09:12→20:55)
[2021-12-02] MEDS: ASPirin 81 mg TAB PO SCH (10:00)
[2021-12-02] MEDS: ENOXAPARIN SOD 40 MG/0.4 ML SYRINGE SC SCH (10:00)
[2021-12-02] MEDS ORDERED: methylPREDNISolone SOD SUCC 40 MG/ML VL IV ONE (11:30)
[2021-12-02 13:00] VITALS: BP 129/91
[2021-12-02 17:00] VITALS: BP 131/84
[2021-12-02] MEDS ORDERED: VANCOMYCIN 1GM/250ML 250 ML IV SCH (17:00)
[2021-12-02] MEDS: SODIUM CHLORIDE 0.9% 1,000 ML IV SCH (17:30)
[2021-12-02] MEDS ORDERED: SODIUM CHLORIDE 0.9% 1,000 ML IV ONE (17:30)
[2021-12-02] MEDS: ATORVASTATIN 20 MG TAB PO SCH (20:55)
[2021-12-02 21:34] LABS: Urine Bacteria FEW /hpf (None Seen); Urine Blood Negative /uL (Negative); Urine Specific Gravity 1.037 (1.001-1.035); Urine WBC 2 /hpf (0 - 3)
[2021-12-02 22:00] VITALS: BP 114/81
[2021-12-02 22:07] LABS: Alcohol, Urine < 3.0 mg/dL (0-10); Amphetamine Screen, Urine NEGATIVE (NEGATIVE); Barbiturate Scree,Urine NEGATIVE (NEGATIVE); Benzodiazephine Screen, Urine NEGATIVE (NEGATIVE); Cannabinoid Screen, Urine POSITIVE (NEGATIVE); Cocaine Screen, Urine NEGATIVE (NEGATIVE); Opiate Scree,Urine POSITIVE (NEGATIVE); Phencyclidine Screen, Urine NEGATIVE (NEGATIVE); Protein, Urine 45.2 mg/dL (0.0-11.9)
[2021-12-03] VITALS (37 sets, daily range): BP systolic 74–140; BP diastolic 49–83
[2021-12-03] MEDS: VANCOMYCIN 1GM/250ML 250 ML IV SCH ×4 (02:09→22:00)
[2021-12-03] MEDS: PIPERACILLIN-TAZOB 3.375GM 100 ML IV SCH ×3 (05:54→18:39)
[2021-12-03] MEDS: ACCU-CHEK COMFORT CURVE STRIP VI SCH ×4 (05:54→22:00)
[2021-12-03] MEDS: SODIUM CHLORIDE 0.9% 1,000 ML IV SCH ×2 (06:00→18:30)
[2021-12-03] MEDS: InsuLIN REG 1unit/0.01ml Soln (100units/ml) SC SCH ×4 (06:03→22:15)
[2021-12-03 06:40] LABS: Potassium 4.4 mmol/L (3.5-5.1)
[2021-12-03 06:53] LABS: Albumin 2.1 g/dL (3.4-5.0); BUN/Creatinine Ratio 43.5; Bilirubin, Total 0.6 mg/dL (0.2-1.0)
[2021-12-03] MEDS ORDERED: SUCCINYLCHOLINE CHLORIDE 20 MG/ML 10ML VIAL IV ONE (06:57)
[2021-12-03] MEDS ORDERED: ROCURONIUM 10MG/ML 10ML VIAL IV ONE ×2 (06:57→08:09)
[2021-12-03] MEDS ORDERED: fentaNYL CITRATE 100 MCG/2 ML VL ONE (08:09)
[2021-12-03] MEDS ORDERED: ONDANSETRON HCL 4 MG/2 ML VIAL ONE (08:10)
[2021-12-03] MEDS ORDERED: MIDAZOLAM HCL 2MG/2ML 2ml VIAL (1mg/ml) ONE (08:10)
[2021-12-03] MEDS ORDERED: ETOMIDATE (2MG/ML) 20ML VIAL IV ONE (08:10)
[2021-12-03] MEDS ORDERED: SODIUM CHLORIDE LOCK 30 ML ONE (08:10)
[2021-12-03 08:20] LABS: Hematocrit 32.6 % (41.0-53.0); Hemoglobin 11.1 g/dL (13.5-17.5); Mean Corpuscular Hemoglobin 31.3 pg (28.0-32.0); Mean Corpuscular Hgb Conc. 33.9 g/dL (32.0-36.0); Mean Corpuscular Volume 92.4 fL (80.0-100.0); Red Blood Cells 3.53 10^6/uL (4.5-5.90); Red Cell Distribution Width 14.1 % (11.8-14.3)
[2021-12-03 08:26] LABS: Basophils % (manual) 0 (0.0-2.0); Blast Cells 0; Eosinophils % (manual) 0 (0-7); Metamyelocytes % 0; Myelocytes % 0; Promyelocytes % 0; Reactive Lymphocytes 0; White Blood Cell 53.4 10^3/uL (4.4-10.8)
[2021-12-03] MEDS ORDERED: ACCU-CHEK COMFORT CURVE STRIP VI ONE (09:15)
[2021-12-03] MEDS ORDERED: HYDROmorphone HCL 2 MG/ML VL IV PRN (09:15)
[2021-12-03] MEDS ORDERED: MORPHINE SULFATE 4 MG/ML SYR/VIAL IV PRN (09:15)
[2021-12-03] MEDS ORDERED: METOCLOPRAMIDE HCL 5MG/ml INJ 2ml VIAL IV PRN (09:15)
[2021-12-03] MEDS: ASPirin 81 mg TAB PO SCH (10:00)
[2021-12-03] MEDS ORDERED: methylPREDNISolone SOD SUCC 40 MG/ML VL IV SCH (10:00)
[2021-12-03] MEDS: ENOXAPARIN SOD 40 MG/0.4 ML SYRINGE SC SCH (10:00)
[2021-12-03] MEDS ORDERED: GLYCOPYRROLATE 0.2 MG/ML 1ML VIAL ONE (10:28)
[2021-12-03] MEDS ORDERED: NEOSTIGMINE 1 MG/ML INJ (10mg/10ML VIAL) ONE (10:28)
[2021-12-03] MEDS ORDERED: ONDANSETRON HCL 4 MG/2 ML VIAL IV ONE (11:35)
[2021-12-03] MEDS ORDERED: MIDAZOLAM DRIP 50 mg/50mL 50 ML IV ONE (12:55)
[2021-12-03] MEDS: MIDAZOLAM DRIP 50 mg/50mL 50 ML IV SCH ×2 (13:05→16:41)
[2021-12-03 13:06] LABS: Band Neutrophils % (manual) 4; Lymphocytes % (manual) 3 (10.0-50.0); Monocytes % (manual) 5 (0-12)
[2021-12-03] MEDS: fentaNYL Drip 2500mCg/250mlNS 250 ML IV SCH (13:37)
[2021-12-03] MEDS ORDERED: PHENYLEPHRINE IV 250 ML IV ONE (17:57)
[2021-12-03] MEDS: PHENYLEPHRINE IV 250 ML IV SCH ×2 (18:10→21:14)
[2021-12-03] MEDS: ATORVASTATIN 20 MG TAB PO SCH (22:25)
[2021-12-04] VITALS (60 sets, daily range): BP systolic 69–136; BP diastolic 16–93
[2021-12-04] MEDS: PIPERACILLIN-TAZOB 3.375GM 100 ML IV SCH ×4 (00:01→19:36)
[2021-12-04] MEDS: PHENYLEPHRINE IV 250 ML IV SCH ×5 (00:07→15:57)
[2021-12-04 03:50] LABS: Hematocrit 26.4 % (41.0-53.0); Mean Corpuscular Hemoglobin 32.3 pg (28.0-32.0); Mean Corpuscular Hgb Conc. 33.8 g/dL (32.0-36.0); Mean Corpuscular Volume 95.4 fL (80.0-100.0); Red Blood Cells 2.77 10^6/uL (4.5-5.90)
[2021-12-04 04:03] LABS: Albumin 1.8 g/dL (3.4-5.0); Calcium 7.9 mg/dL (8.5-10.1); Potassium 4.2 mmol/L (3.5-5.1)
[2021-12-04 04:05] LABS: BUN/Creatinine Ratio 57.5
[2021-12-04 04:08] LABS: Bilirubin, Total 0.4 mg/dL (0.2-1.0); Total Protein 4.5 g/dL (6.4-8.2)
[2021-12-04 04:15] LABS: White Blood Cell 40.5 10^3/uL (4.4-10.8)
[2021-12-04 04:16] LABS: Basophils % (manual) 0 (0.0-2.0); Blast Cells 0; Eosinophils % (manual) 0 (0-7); Metamyelocytes % 0; Promyelocytes % 0; Reactive Lymphocytes 0
[2021-12-04 04:41] LABS: Band Neutrophils % (manual) 3; Lymphocytes % (manual) 3 (10.0-50.0); Monocytes % (manual) 4 (0-12); Myelocytes % 1
[2021-12-04] MEDS: MIDAZOLAM DRIP 50 mg/50mL 50 ML IV SCH ×3 (06:11→23:34)
[2021-12-04] MEDS: SODIUM CHLORIDE 0.9% 1,000 ML IV SCH ×2 (06:30→22:03)
[2021-12-04] MEDS: ACCU-CHEK COMFORT CURVE STRIP VI SCH ×4 (06:31→22:04)
[2021-12-04] MEDS: InsuLIN REG 1unit/0.01ml Soln (100units/ml) SC SCH ×4 (06:31→22:00)
[2021-12-04] MEDS: VASOPRESSIN 50 UNITS in D5W 5% 247.5 ML IV SCH ×2 (07:38→19:30)
[2021-12-04] MEDS: NOREPINEPHRINE 8 MG/250ML KIT 250 ML IV SCH ×2 (08:20→13:55)
[2021-12-04] MEDS ORDERED: HYDROCORTISONE SOD SUCC 100 MG/2ML INJ VIAL IV ONE (08:45)
[2021-12-04] MEDS ORDERED: ALBUMIN 25% 100 ML IV ONE ×2 (09:00→09:06)
[2021-12-04] MEDS: ASPirin 81 mg TAB PO SCH (10:00)
[2021-12-04] MEDS ORDERED: PANTOPRAZOLE 40 MG/10 ML VIAL INJ IV SCH ×2 (10:00→22:00)
[2021-12-04] MEDS: ENOXAPARIN SOD 40 MG/0.4 ML SYRINGE SC SCH (10:00)
[2021-12-04 10:27] LABS: Lactic Acid w/Reflex 10.2 mmol/L (0.4-2.0)
[2021-12-04] MEDS ORDERED: SODIUM BICARBONATE 8.4 % INJ 50ML VIAL IV ONE ×4 (10:29→22:45)
[2021-12-04] MEDS ORDERED: LIDOCAINE 1% (LOCAL ANESTH.) PF 5ml SDV ID ONE (10:45)
[2021-12-04] MEDS ORDERED: EPINEPHrine HCL 250 ML IV ONE (10:52)
[2021-12-04] MEDS ORDERED: SODIUM CHLORIDE 0.9% 1,000 ML IV ONE (11:00)
[2021-12-04] MEDS: EPINEPHrine HCL 250 ML IV SCH ×2 (11:24→23:58)
[2021-12-04] MEDS: VANCOMYCIN 1GM/250ML 250 ML IV SCH ×2 (11:26→22:04)
[2021-12-04 15:35] LABS: Hematocrit 14.1 % (41.0-53.0); Mean Corpuscular Hemoglobin 31.4 pg (28.0-32.0); Mean Corpuscular Volume 104.8 fL (80.0-100.0); Red Blood Cells 1.35 10^6/uL (4.5-5.90); Red Cell Distribution Width 15.4 % (11.8-14.3)
[2021-12-04 15:40] LABS: Hemoglobin 4.2 g/dL (13.5-17.5); White Blood Cell 37.8 10^3/uL (4.4-10.8)
[2021-12-04 15:41] LABS: Basophils % (manual) 0 (0.0-2.0); Blast Cells 0; Eosinophils % (manual) 0 (0-7); Metamyelocytes % 0; Myelocytes % 0; Promyelocytes % 0; Reactive Lymphocytes 0
[2021-12-04] MEDS ORDERED: HYDROCORTISONE SOD SUCC 100 MG/2ML INJ VIAL IV SCH (16:00)
[2021-12-04 16:13] LABS: Band Neutrophils % (manual) 10; Lymphocytes % (manual) 4 (10.0-50.0); Monocytes % (manual) 2 (0-12)
[2021-12-04] MEDS: fentaNYL Drip 2500mCg/250mlNS 250 ML IV SCH (17:13)
[2021-12-04] MEDS: PHENYLEPHRINE INJ 80 MG in SODIUM CHL 0.9% 242 ML IV SCH (19:58)
[2021-12-04] MEDS: NOREPINEPHRINE BITARTRATE 32 MG in SODIUM CHL 0.9% 218 ML IV SCH (19:59)
[2021-12-04] MEDS ORDERED: SODIUM CHLOR 0.9% PF (SALINE LOCK) 10ML VIAL/SYR IV SCH (22:00)
[2021-12-04] MEDS: ATORVASTATIN 20 MG TAB PO SCH (22:04)
[2021-12-04] MEDS ORDERED: SOD CHL IV SCH ×2 (22:30→22:45)
[2021-12-04] MEDS ORDERED: SODIUM BICARBONATE IV SCH ×2 (22:30→22:45)
[2021-12-04 22:43] LABS: Basophils # (auto) 0 10 ^3/uL (0-0.2); Eosinophils # (auto) 0.1 10 ^3/uL (0-0.8); Hematocrit 20.1 % (41.0-53.0); Lymphocytes # (auto) 1.1 10 ^3/uL (0.4-5.4); Lymphocytes % (auto) 4.3 % (10.0-50.0); Mean Corpuscular Hgb Conc. 27.6 g/dL (32.0-36.0); Red Blood Cells 1.73 10^6/uL (4.5-5.90); Red Cell Distribution Width 16.4 % (11.8-14.3)
[2021-12-04 22:44] LABS: Basophils % (auto) 0.2 % (0.0-2.0); Eosinophils % (auto) 0.3 % (0.0-7.0); Mean Corpuscular Hemoglobin 32.2 pg (28.0-32.0); Mean Corpuscular Volume 116.6 fL (80.0-100.0); Monocytes # (auto) 1.3 10 ^3/uL (0-1.3); Monocytes % (auto) 5.1 % (0.0-12.0); Neutrophils % (auto) 90.1 % (37.0-80.0); Nucleated Red Blood Cells % 0.3 %; White Blood Cell 25.5 10^3/uL (4.4-10.8)
[2021-12-04] MEDS ORDERED: SODIUM BICARBONATE 50ML VIAL 150 ML in D5W 5% 1,000 ML IV SCH (22:45)
[2021-12-04 22:46] LABS: Hemoglobin 5.6 g/dL (13.5-17.5)
[2021-12-04 23:25] LABS: Basophils # (auto) 0.1 10 ^3/uL (0-0.2); Basophils % (auto) 0.2 % (0.0-2.0); Eosinophils # (auto) 0 10 ^3/uL (0-0.8); Eosinophils % (auto) 0.1 % (0.0-7.0); Hemoglobin 7.5 g/dL (13.5-17.5); Lymphocytes # (auto) 2.1 10 ^3/uL (0.4-5.4); Lymphocytes % (auto) 6.1 % (10.0-50.0); Mean Corpuscular Hemoglobin 32.4 pg (28.0-32.0); Mean Corpuscular Hgb Conc. 29.8 g/dL (32.0-36.0); Mean Corpuscular Volume 108.7 fL (80.0-100.0); Monocytes # (auto) 2.1 10 ^3/uL (0-1.3); Monocytes % (auto) 6.2 % (0.0-12.0); Neutrophils % (auto) 87.4 % (37.0-80.0); Nucleated Red Blood Cells % 0.2 %
[2021-12-04 23:29] LABS: White Blood Cell 34.3 10^3/uL (4.4-10.8)
[2021-12-05] MEDS: PIPERACILLIN-TAZOB 3.375GM 100 ML IV SCH ×2 (00:33→06:14)
[2021-12-05 00:45] LABS: BUN/Creatinine Ratio 22.8
[2021-12-05 00:46] LABS: Albumin 1.2 g/dL (3.4-5.0); Bilirubin, Total 1.3 mg/dL (0.2-1.0); Calcium 6.6 mg/dL (8.5-10.1); Total Protein 2.8 g/dL (6.4-8.2)
[2021-12-05 00:50] LABS: Potassium 7.4 mmol/L (3.5-5.1)
[2021-12-05 01:14] LABS: INR 4.12 (0.9-1.15)
[2021-12-05] MEDS ORDERED: InsuLIN REG 1unit/0.01ml Soln (100units/ml) IV ONE (01:15)
[2021-12-05] MEDS ORDERED: DEXTROSE (50%) 50ML SYRG IV ONE (01:15)
[2021-12-05] MEDS ORDERED: CALCIUM GLUC 1,000mg/50ml-NS 50 ML IV ONE (01:15)
[2021-12-05] MEDS ORDERED: SODIUM ZIRCONIUM CYCL 10 GM PAK GT ONE (01:15)
[2021-12-05] MEDS ORDERED: PHYTONADIONE (VIT K)10 MG/ML 1ML VIAL IV ONE (01:30)
[2021-12-05] MEDS ORDERED: phytonadione 10 MG in SODIUM CHL 0.9% 50 ML IV ONE ×2 (01:45→02:20)
[2021-12-05] MEDS: PHENYLEPHRINE INJ 80 MG in SODIUM CHL 0.9% 242 ML IV SCH (02:03)
[2021-12-05] MEDS ORDERED: phytonadione 1 ML ONE (03:21)
[2021-12-05] MEDS: NOREPINEPHRINE BITARTRATE 32 MG in SODIUM CHL 0.9% 218 ML IV SCH (03:41)
[2021-12-05] MEDS: EPINEPHrine HCL 250 ML IV SCH (03:41)
[2021-12-05 06:35] LABS: Hematocrit 18.6 % (41.0-53.0); Mean Corpuscular Hemoglobin 32.5 pg (28.0-32.0); Mean Corpuscular Hgb Conc. 31.3 g/dL (32.0-36.0); Mean Corpuscular Volume 103.8 fL (80.0-100.0); Red Blood Cells 1.79 10^6/uL (4.5-5.90)
[2021-12-05 06:38] VITALS: BP 115/24
[2021-12-05 06:46] LABS: Albumin 1.2 g/dL (3.4-5.0); Anion Gap 27 (5-15); Blood Urea Nitrogen 64 mg/dL (7-18); Calcium 8.7 mg/dL (8.5-10.1); Carbon Dioxide 15 mmol/L (21-32); Chloride 100 mmol/L (98-107); GFR African American 25 mL/min; GFR Non-African American 21 mL/min; Glucose 261 mg/dL (74-106); Sodium 142 mmol/L (136-145)
[2021-12-05 07:14] LABS: Alkaline Phosphatase 220 U/L (45-117); Bilirubin, Total 1.7 mg/dL (0.2-1.0); Total Protein 2.8 g/dL (6.4-8.2)
[2021-12-05 07:30] LABS: INR 5.14 (0.9-1.15); Partial Thromboplastin Time 82.2 sec (23.6-33.0); Potassium 9.3 mmol/L (3.5-5.1)
[2021-12-05 07:31] LABS: Hemoglobin 5.8 g/dL (13.5-17.5); White Blood Cell 33.3 10^3/uL (4.4-10.8)
[2021-12-05 07:32] LABS: Aspartate Aminotransferase > 20000 U/L (15-37); Basophils % (manual) 0 (0.0-2.0); Blast Cells 0; Eosinophils % (manual) 0 (0-7); Myelocytes % 0; Promyelocytes % 0; Reactive Lymphocytes 0
[2021-12-05 07:33] LABS: Alanine Aminotransferase 15151 U/L (16-61)
[2021-12-05] MEDS ORDERED: EPINEPHrine HCL 1 MG/10 ML SYRG IV ONE (10:05)
[2021-12-05] MEDS ORDERED: SODIUM BICARBONATE 8.4% INJ 50ML SYRINGE IV ONE (10:05)
[2021-12-05] MEDS ORDERED: CALCIUM CHLOR(10%) 100MG/ML 10ML SYRINGE IV ONE (10:05)
[2021-12-05 12:51] LABS: Band Neutrophils % (manual) 10; Lymphocytes % (manual) 7 (10.0-50.0); Metamyelocytes % 1; Monocytes % (manual) 3 (0-12)
== END 2021-12-05 11:36 | DRG 853 ==
LOC: ER 08:58 → TELE 14:40 → TELE-WESTW 18:04 → ICU WEST 12-03 12:51
PROVIDERS: ADMIT Hospitalist; ATTEND Family Medicine
PROC: 0W9B40Z Drainage of Left Pleural Cavity with Drainage Device, Percutaneous Endoscopic Approach (ICD-10-PCS; 2021-12-03)
PROC: 0BBP4ZX Excision of Left Pleura, Percutaneous Endoscopic Approach, Diagnostic (ICD-10-PCS; 2021-12-03)
PROC: 0BH17EZ Insertion of Endotracheal Airway into Trachea, Via Natural or Artificial Opening (ICD-10-PCS; 2021-12-03)
PROC: 05H933Z Insertion of Infusion Device into Right Brachial Vein, Percutaneous Approach (ICD-10-PCS; 2021-12-03)
PROC: B54MZZA Ultrasonography of Right Upper Extremity Veins, Guidance (ICD-10-PCS; 2021-12-03)
PROC: 5A1945Z Respiratory Ventilation, 24-96 Consecutive Hours (ICD-10-PCS; principal; 2021-12-03 09:27)
PROC: 30233N1 Transfusion of Nonautologous Red Blood Cells into Peripheral Vein, Percutaneous Approach (ICD-10-PCS; 2021-12-04)
PROC: 5A12012 Performance of Cardiac Output, Single, Manual (ICD-10-PCS; 2021-12-05)
DX: A41.9 Sepsis, unspecified organism (principal); J86.9 Pyothorax without fistula; R65.21 Severe sepsis with septic shock; E43 Unspecified severe protein-calorie malnutrition; J96.21 Acute and chronic respiratory failure with hypoxia; J18.9 Pneumonia, unspecified organism; S22.089A Unspecified fracture of T11-T12 vertebra, initial encounter for closed fracture; J90 Pleural effusion, not elsewhere classified; I16.9 Hypertensive crisis, unspecified; N17.9 Acute kidney failure, unspecified; J44.1 Chronic obstructive pulmonary disease with (acute) exacerbation; J44.0 Chronic obstructive pulmonary disease with (acute) lower respiratory infection; K59.39 Other megacolon; K56.609 Unspecified intestinal obstruction, unspecified as to partial versus complete obstruction; C34.12 Malignant neoplasm of upper lobe, left bronchus or lung; D62 Acute posthemorrhagic anemia; I10 Essential (primary) hypertension; R74.02 Elevation of levels of lactic acid dehydrogenase [LDH]; Z20.822 Contact with and (suspected) exposure to COVID-19; G40.909 Epilepsy, unspecified, not intractable, without status epilepticus; F17.210 Nicotine dependence, cigarettes, uncomplicated; K21.9 Gastro-esophageal reflux disease without esophagitis; I25.10 Atherosclerotic heart disease of native coronary artery without angina pectoris; I65.21 Occlusion and stenosis of right carotid artery; X58.XXXA Exposure to other specified factors, initial encounter; D75.839 Thrombocytosis, unspecified; Z85.118 Personal history of other malignant neoplasm of bronchus and lung; Z83.3 Family history of diabetes mellitus; Z87.442 Personal history of urinary calculi; Z71.6 Tobacco abuse counseling; Y93.89 Activity, other specified; Y92.89 Other specified places as the place of occurrence of the external cause; Y99.8 Other external cause status
CPT/HCPCS: 36415; 36569; 36600; 71045; 71275; 74018; 80053; 80061; 80202; 80307; 81001; 82533; 82550; 82728; 82805; 82962; 83036; 83605; 83615; 83690; 83735; 83880; 84100; 84156; 84443; 84484; 85007; 85025; 85027; 85379; 85610; 85652; 85730; 86141; 86850; 86900; 86901; 86920; 87040; 87070; 87075; 87077; 87081; 87086; 87205; 92950; 93005; 93306; 94002; 94003; 96365; 96367; 96368; A4565; C9113; G0378; J0171; J0330; J0696; J1815; J2250; J2405; J2543; J3430; J7060; P9047